=== PATIENT | female | born 1990 | race African-American/Black ===

== ENCOUNTER 2017-08-30 13:18 | Emergency (ER) | payer BC | END 2017-08-30 13:50 | disposition home or self-care (01) | LOC: ER 13:18 | DX: J01.90 Acute sinusitis, unspecified (principal); H92.01 Otalgia, right ear | CPT/HCPCS: 99283 ==

== ENCOUNTER 2018-09-22 01:20 | Emergency (ER) | payer BC, OTHER, SELFPAY ==
[~2018-09-22] VITALS: Ht 149.9 cm; Wt 80.3 kg
[~2018-09-22 01:20] MED LIST: AMOX1TAB61 PO; FLUT9.9S NS
[2018-09-22] MEDS ORDERED: IV NORMAL SALINE 1000ML BAG 1,000 ML IV SCH (02:00)
[2018-09-22 02:01] LABS: BILIRUBIN,URINE NEGATIVE (NEG); CLARITY,URINE CLEAR; COLOR,URINE YELLOW; NITRITE,URINE NEGATIVE (NEG); PROTEIN,URINE >=300 mg/dL (NEG-TRACE); UROBILINOGEN,URINE 0.2 mg/dL (0.2 mg/dL)
[2018-09-22 02:05] LABS: BACTERIA,URINE MODERATE /HPF (0-FEW); SQUAMOUS EPITHELIAL CELL,UR MANY /LPF
[2018-09-22 02:06] LABS: RBC,URINE 20-40 /HPF (0-2)
[2018-09-22] MEDS: MORPHINE SULFATE 4 MG/ML VIAL. IV/SQ PRN ×4 (02:11→04:52)
[2018-09-22 02:20] LABS: BASO # 0.1 x10^3/uL (0.0-0.2); BASO % 1 % (0-3); EOS # 0.2 x10^3/uL (0.0-0.7); EOS % 2 % (0-3); HEMATOCRIT 41.8 % (36.0-47.0); LYMPH # 3.1 x10^3/uL (1.0-4.8); LYMPH % 32 % (24-48); MEAN CORPUSCULAR HEMOGLOBIN 33 pg (25-35); MEAN CORPUSCULAR HGB CONC 34 g/dL (31-37); MEAN CORPUSCULAR VOLUME 98 fL (79-100); MONO # 0.5 x10^3/uL (0.0-1.1); MONO % 5 % (0-9); NEUT # 5.7 x10^3uL (1.8-7.7); NEUT % 61 % (31-73); PLATELET COUNT 352 x10^3/uL (140-400); RED BLOOD COUNT 4.26 x10^6/uL (3.50-5.40); RED CELL DISTRIBUTION WIDTH 14.2 % (11.5-14.5); WHITE BLOOD COUNT 9.5 x10^3/uL (4.0-11.0)
[2018-09-22 02:28] LABS: CALCIUM 8.8 mg/dL (8.5-10.1); CREATININE 0.7 mg/dL (0.6-1.0); GFR 118.9; POTASSIUM 3.9 mmol/L (3.5-5.1)
[2018-09-22] MEDS ORDERED: ONDANSETRON PF 4 MG/2 ML VIAL. IV ONE (02:30)
[2018-09-22 02:33] LABS: ALBUMIN 2.5 g/dL (3.4-5.0); ALBUMIN/GLOBULIN RATIO 0.6 (1.0-1.7); TOTAL BILIRUBIN 0.2 mg/dL (0.2-1.0); TOTAL PROTEIN 6.4 g/dL (6.4-8.2)
[2018-09-22] MEDS ORDERED: CONTRAST GIVEN. MC PRN (03:00)
[2018-09-22] MEDS ORDERED: IOHEXOL 300 MG/ML 100ML VIAL. IV ONE (03:30)
--- NOTE | 2018-09-22 03:35 | RAD ---
CT abdomen pelvis with contrast. HISTORY: Abdominal pain CT scan of the abdomen and pelvis was done using 75 mL Omnipaque 300 contrast. Lung bases are clear. There is no effusion. Liver is normal in appearance. Gallbladder is mildly distended without gallbladder wall thickening or a calcified gallstone. Spleen and adrenal glands are unremarkable. Pancreas is normal. There is no mass or hydronephrosis in the kidneys. There is no bowel obstruction or ascites. Appendix is normal. Uterus and ovaries are normal. There is no ascites. There is no adenopathy or bowel obstruction. IMPRESSION: 1. No abdominal or pelvic mass. 2. Mild gallbladder distention without gallbladder wall thickening. 3. No other acute finding noted. Electronically signed by: Raheel Carey MD (09/22/2018 3:31 AM) [facility]
[2018-09-22] MEDS ORDERED: DIPH1TAB PO (04:14)
[2018-09-22] MEDS ORDERED: TRAM50TA PO (04:14)
[2018-09-22] MEDS ORDERED: ONDA4TAB7 PO (04:14)
--- NOTE | 2018-09-22 04:16 | PHYS DOC ---
Past Medical History Past Medical History: Hypothyroid, Other Additional Past Medical Histor: nephrotic syndrome Past Surgical History: No Surgical History Alcohol Use: None Drug Use: Marijuana Adult General Chief Complaint Chief Complaint: NAUSEA/VOMITING/DIARRHA HPI HPI Patient is a 28-year-old female who presents with complaint of mid to upper abdominal pain that started earlier today. states that she has had similar episodes to this in the past. She states that since onset of pain she has had nausea with vomiting and diarrhea. She denies any fever. She rates her pain to be an 8 out of 10 and states the pain is worsened if she tries to eat or drink anything and with palpation of her abdomen. She denies any chest pain or shortness breath. She also denies any fever. Patient states that nothing improves her symptoms.[] Review of Systems Review of Systems Constitutional: Denies fever or chills [] Respiratory: Denies cough or shortness of breath [] Cardiovascular: No additional information not addressed in HPI [] GI: Complains of abdominal pain with nausea, vomiting and diarrhea [] : Denies dysuria or hematuria [] Neurologic: Denies headache, focal weakness or sensory changes [] All other systems were reviewed and found to be within normal limits, except as documented in this note. Current Medications Current Medications Current Medications Medications (Trade) Dose Ordered Sig/Donita Start Time Stop Time Status Last Admin Dose Admin Info (CONTRAST GIVEN -- Rx MONITORING) 1 each PRN DAILY PRN 09/22/18 03:00 09/24/18 02:59 Iohexol (Omnipaque 300 Mg/ml) 75 ml 1X ONCE 09/22/18 03:30 09/22/18 03:31 DC 09/22/18 03:08 75 ML Morphine Sulfate (Morphine Sulfate) 4 mg PRN Q15MIN PRN 09/22/18 02:00 09/23/18 01:59 09/22/18 03:31 4 MG Ondansetron HCl (Zofran) 4 mg 1X ONCE 09/22/18 02:30 09/22/18 02:31 DC 09/22/18 02:11 4 MG Sodium Chloride 1,000 ml @ 1,000 mls/hr Q1H 09/22/18 02:00 09/22/18 02:59 DC 09/22/18 02:24 1,000 MLS/HR Allergies Allergies Allergies Coded Allergies Type Severity Reaction Last Updated Verified No Known Drug Allergies 05/04/15 No Physical Exam Physical Exam Constitutional: Well developed, well nourished, no acute distress, non-toxic appearance. [] HENT: Normocephalic, atraumatic, bilateral external ears normal, oropharynx moist, no oral exudates, nose normal. [] Eyes: PERRLA, EOMI, conjunctiva normal, no discharge. [] Neck: Normal range of motion, no tenderness, supple, no stridor. [] Cardiovascular:Heart rate regular rhythm, no murmur [] Lungs & Thorax: Bilateral breath sounds clear to auscultation [] Abdomen: Bowel sounds normal, soft, with epigastric and right upper quadrant tenderness. [] Skin: Warm, dry, no erythema, no rash. [] Extremities: No tenderness, no cyanosis, no clubbing, ROM intact, no edema. [] Neurologic: Alert and oriented X 3, no focal deficits noted. [] Current Patient Data Vital Signs Vital Signs Date Time Temp Pulse Resp B/P (MAP) Pulse Ox O2 Delivery O2 Flow Rate FiO2 09/22/18 03:31 98 09/22/18 02:11 18 Room Air 09/22/18 01:45 98.9 98 150/107 (121) 98.9 Lab Values Laboratory Tests Test 09/22/18 01:35 09/22/18 01:41 09/22/18 02:15 Urine Color Yellow Urine Clarity Clear Urine pH 6.0 Urine Specific [place] 1.020 Urine Protein >=300 mg/dL (NEG-TRACE) Urine Glucose (UA) Negative mg/dL (NEG) Urine Ketones (Stick) Negative mg/dL (NEG) Urine Blood Large (NEG) Urine Nitrite Negative (NEG) Urine Bilirubin Negative (NEG) Urine Urobilinogen Dipstick 0.2 mg/dL (0.2 mg/dL) Urine Leukocyte Esterase Negative (NEG) Urine RBC 20-40 /HPF (0-2) Urine WBC 5-10 /HPF (0-4) Urine Squamous Epithelial Cells Many /LPF Urine Bacteria Moderate /HPF (0-FEW) Urine Mucus Mod /LPF POC Urine HCG, Qualitative Hcg negative (Negative) White Blood Count 9.5 x10^3/uL (4.0-11.0) Red Blood Count 4.26 x10^6/uL (3.50-5.40) Hemoglobin 14.0 g/dL (12.0-15.5) Hematocrit 41.8 % (36.0-47.0) Mean Corpuscular Volume 98 fL (79-100) Mean Corpuscular Hemoglobin 33 pg (25-35) Mean Corpuscular Hemoglobin Concent 34 g/dL (31-37) Red Cell Distribution Width 14.2 % (11.5-14.5) Platelet Count 352 x10^3/uL (140-400) Neutrophils (%) (Auto) 61 % (31-73) Lymphocytes (%) (Auto) 32 % (24-48) Monocytes (%) (Auto) 5 % (0-9) Eosinophils (%) (Auto) 2 % (0-3) Basophils (%) (Auto) 1 % (0-3) Neutrophils # (Auto) 5.7 x10^3uL (1.8-7.7) Lymphocytes # (Auto) 3.1 x10^3/uL (1.0-4.8) Monocytes # (Auto) 0.5 x10^3/uL (0.0-1.1) Eosinophils # (Auto) 0.2 x10^3/uL (0.0-0.7) Basophils # (Auto) 0.1 x10^3/uL (0.0-0.2) Sodium Level 144 mmol/L (136-145) Potassium Level 3.9 mmol/L (3.5-5.1) Chloride Level 107 mmol/L (98-107) Carbon Dioxide Level 24 mmol/L (21-32) Anion Gap 13 (6-14) Blood Urea Nitrogen 11 mg/dL (7-20) Creatinine 0.7 mg/dL (0.6-1.0) Estimated GFR (Cockcroft-Gault) 118.9 BUN/Creatinine Ratio 16 (6-20) Glucose Level 88 mg/dL (70-99) Calcium Level 8.8 mg/dL (8.5-10.1) Total Bilirubin 0.2 mg/dL (0.2-1.0) Aspartate Amino Transferase (AST) 32 U/L (15-37) Alanine Aminotransferase (ALT) 40 U/L (14-59) Alkaline Phosphatase 74 U/L (46-116) Total Protein 6.4 g/dL (6.4-8.2) Albumin 2.5 g/dL (3.4-5.0) L Albumin/Globulin Ratio 0.6 (1.0-1.7) L Lipase 265 U/L (73-393) Laboratory Tests 09/22/18 02:15 Laboratory Tests 09/22/18 02:15 EKG EKG [] Radiology/Procedures Radiology/Procedures [] Impressions: PROCEDURE: CT ABD PELV W/ IV CONTRST ONLY CT abdomen pelvis with contrast. HISTORY: Abdominal pain CT scan of the abdomen and pelvis was done using 75 mL Omnipaque 300 contrast. Lung bases are clear. There is no effusion. Liver is normal in appearance. Gallbladder is mildly distended without gallbladder wall thickening or a calcified gallstone. Spleen and adrenal glands are unremarkable. Pancreas is normal. There is no mass or hydronephrosis in the kidneys. There is no bowel obstruction or ascites. Appendix is normal. Uterus and ovaries are normal. There is no ascites. There is no adenopathy or bowel obstruction. IMPRESSION: 1. No abdominal or pelvic mass. 2. Mild gallbladder distention without gallbladder wall thickening. 3. No other acute finding noted. Electronically signed by: Raheel Carey MD (09/22/2018 3:31 AM) [facility] Course & Med Decision Making Course & Med Decision Making Pertinent Labs and Imaging studies reviewed. (See chart for details) [] Dragon Disclaimer Dragon Disclaimer This electronic medical record was generated, in whole or in part, using a voice recognition dictation system. Departure Departure Impression: Primary Impression: Abdominal pain Additional Impression: Gastroenteritis Disposition: 01 HOME, SELF-CARE Condition: STABLE Referrals: NO PCP (PCP) Patient Instructions: Abdominal Pain, Viral Gastroenteritis Scripts Tramadol Hcl (TRAMADOL HCL) 50 Mg Tablet 50 MG PO Q6HRS PRN for PAIN, #10 TAB Prov: ZORA SALAS Jr. DO 09/22/18 Diphenoxylate Hcl/Atropine (LOMOTIL TABLET) 1 Each Tablet 1 TAB PO TID PRN for DIARRHEA, #15 TAB Prov: ZORA SALAS Jr. DO 09/22/18 Ondansetron Hcl (ZOFRAN) 4 Mg Tablet 4 MG PO PRN TID PRN for NAUSEA, #15 nausea/vomiting Prov: ZORA SALAS Jr. DO 09/22/18 Problem Qualifiers Primary Impression: Abdominal pain Abdominal location: generalized Qualified Codes: R10.84 - Generalized abdominal pain ZORA SALAS Jr. DO September 22, 2018 04:15
[2018-09-22 04:51] VITALS: BP 116/61
== END 2018-09-22 05:02 | disposition home or self-care (01) ==
LOC: ER 01:20
DX: K52.9 Noninfective gastroenteritis and colitis, unspecified (principal); E03.9 Hypothyroidism, unspecified
CPT/HCPCS: 36415; 74177; 80053; 81001; 81025; 83690; 85025; 87086; 96361; 96374; 96375; 96376; 99285; J2270; J2405; J7030; Q9967

== ENCOUNTER 2018-11-02 20:21 | Emergency (ER) | payer OTHER ==
[~2018-11-02] VITALS: Ht 149.9 cm; Wt 80.3 kg
[~2018-11-02 20:21] MED LIST changes: +DIPH1TAB PO; +ONDA4TAB7 PO; +TRAM50TA PO
[2018-11-02 20:39] LABS: BILIRUBIN,URINE NEGATIVE (NEG); CLARITY,URINE CLEAR; COLOR,URINE YELLOW; NITRITE,URINE NEGATIVE (NEG); PH,URINE 5.5; PROTEIN,URINE >=300 mg/dL (NEG-TRACE); UROBILINOGEN,URINE 0.2 mg/dL (0.2 mg/dL)
[2018-11-02 20:47] LABS: BACTERIA,URINE FEW /HPF (0-FEW); SQUAMOUS EPITHELIAL CELL,UR MOD /LPF; WBC,URINE RARE /HPF (0-4)
[2018-11-02 20:56] LABS: BASO # 0.1 x10^3/uL (0.0-0.2); BASO % 0 % (0-3); EOS % 0 % (0-3); HEMATOCRIT 42.1 % (36.0-47.0); HEMOGLOBIN 14.3 g/dL (12.0-15.5); LYMPH # 2.4 x10^3/uL (1.0-4.8); LYMPH % 18 % (24-48); MEAN CORPUSCULAR HEMOGLOBIN 34 pg (25-35); MEAN CORPUSCULAR HGB CONC 34 g/dL (31-37); MEAN CORPUSCULAR VOLUME 99 fL (79-100); MONO # 0.5 x10^3/uL (0.0-1.1); MONO % 4 % (0-9); NEUT # 10.2 x10^3uL (1.8-7.7); NEUT % 77 % (31-73); PLATELET COUNT 355 x10^3/uL (140-400); RED BLOOD COUNT 4.26 x10^6/uL (3.50-5.40); RED CELL DISTRIBUTION WIDTH 14.1 % (11.5-14.5); WHITE BLOOD COUNT 13.3 x10^3/uL (4.0-11.0)
--- NOTE | 2018-11-02 20:56 | PHYS DOC ---
Past Medical History Past Medical History: Hypothyroid, Other Additional Past Medical Histor: nephrotic syndrome (ROSELINE ESCOBAR APRN) Past Surgical History: No Surgical History (ROSELINE ESCOBAR APRN) Alcohol Use: None Drug Use: Marijuana (ROSELINE ESCOBAR APRN) Adult General Chief Complaint Chief Complaint: ABDOMINAL PAIN HPI HPI Patient is a 28 year old female who presents with yesterday ate some sushi and has been having nausea and vomiting since last night. States she has a history of colitis. Patient states she is having cramping abdominal pain better e pigastric to mid lower. Patient states she is not having any diarrhea that are normal for her. Patient states she has not seen any blood in her vomit or stool. (ROSELINE ESCOBAR APRN) Review of Systems Review of Systems Constitutional: Denies fever or chills [] Eyes: Denies change in visual acuity, redness, or eye pain [] HENT: Denies nasal congestion or sore throat [] Respiratory: Denies cough or shortness of breath [] Cardiovascular: No additional information not addressed in HPI [] GI: mid epigastric and mid lower abdominal pain, nausea, vomiting, denies bloody stools or diarrhea [] : Denies dysuria or hematuria [] Musculoskeletal: Denies back pain or joint pain [] Integument: Denies rash or skin lesions [] Neurologic: Denies headache, focal weakness or sensory changes [] Endocrine: Denies polyuria or polydipsia [] All other systems were reviewed and found to be within normal limits, except as documented in this note. (ROSELINE ESCOBAR APRN) Current Medications Current Medications Current Medications Medications (Trade) Dose Ordered Sig/Donita Start Time Stop Time Status Last Admin Dose Admin Dicyclomine HCl (Bentyl) 10 mg 1X ONCE 11/02/18 22:00 11/02/18 22:01 DC 11/02/18 21:36 10 MG Fentanyl Citrate (Fentanyl 2ml Vial) 50 mcg 1X ONCE 11/02/18 22:00 11/02/18 22:01 DC 11/02/18 21:35 50 MCG Info (CONTRAST GIVEN -- Rx MONITORING) 1 each PRN DAILY PRN 11/02/18 21:15 11/02/18 22:40 DC Iohexol (Omnipaque 300 Mg/ml) 75 ml 1X ONCE 11/02/18 21:30 11/02/18 21:31 DC 11/02/18 21:19 75 ML Ondansetron HCl (Zofran) 4 mg 1X ONCE 11/02/18 21:00 11/02/18 21:01 DC 11/02/18 21:01 4 MG Sodium Chloride 1,000 ml @ 1,000 mls/hr 1X ONCE 11/02/18 21:00 11/02/18 21:59 DC 11/02/18 21:03 1,000 MLS/HR (KENNY MCDONNELL MD) Allergies Allergies Allergies Coded Allergies Type Severity Reaction Last Updated Verified No Known Drug Allergies 05/04/15 No (KENNY MCDONNELL MD) Physical Exam Physical Exam Constitutional: Well developed, well nourished, no acute distress, non-toxic appearance. [] HENT: Normocephalic, atraumatic, bilateral external ears normal, oropharynx moist, no oral exudates, nose normal. [] Eyes: PERRLA, EOMI, conjunctiva normal, no discharge. [] Neck: Normal range of motion, no tenderness, supple, no stridor. [] Cardiovascular:Heart rate regular rhythm, no murmur [] Lungs & Thorax: Bilateral breath sounds clear to auscultation [] Abdomen: Bowel sounds normal, soft, mid epigastric and mid lower tenderness, no masses, no pulsatile masses. [] Skin: Warm, dry, no erythema, no rash. [] Back: No tenderness, no CVA tenderness. [] Extremities: No tenderness, no cyanosis, no clubbing, ROM intact, no edema. [] Neurologic: Alert and oriented X 3, normal motor function, normal sensory function, no focal deficits noted. [] Psychologic: Affect normal, judgement normal, mood normal. [] (LUZ,ROSELINE Acosta APRN) Current Patient Data Vital Signs Vital Signs Date Time Temp Pulse Resp B/P (MAP) Pulse Ox O2 Delivery O2 Flow Rate FiO2 11/02/18 22:28 89 16 131/77 (95) 99 Room Air 11/02/18 20:41 98.8 98.8 (KENNY MCDONNELL MD) Lab Values Laboratory Tests Test 11/02/18 20:25 11/02/18 20:30 11/02/18 20:40 Urine Collection Type Unknown Urine Color Yellow Urine Clarity Clear Urine pH 5.5 Urine Specific [place] 1.025 Urine Protein >=300 mg/dL (NEG-TRACE) Urine Glucose (UA) Negative mg/dL (NEG) Urine Ketones (Stick) 40 mg/dL (NEG) Urine Blood Large (NEG) Urine Nitrite Negative (NEG) Urine Bilirubin Negative (NEG) Urine Urobilinogen Dipstick 0.2 mg/dL (0.2 mg/dL) Urine Leukocyte Esterase Negative (NEG) Urine RBC 6-10 /HPF (0-2) Urine WBC Rare /HPF (0-4) Urine Squamous Epithelial Cells Mod /LPF Urine Bacteria Few /HPF (0-FEW) Urine Mucus Marked /LPF POC Urine HCG, Qualitative Hcg negative (Negative) White Blood Count 13.3 x10^3/uL (4.0-11.0) H Red Blood Count 4.26 x10^6/uL (3.50-5.40) Hemoglobin 14.3 g/dL (12.0-15.5) Hematocrit 42.1 % (36.0-47.0) Mean Corpuscular Volume 99 fL (79-100) Mean Corpuscular Hemoglobin 34 pg (25-35) Mean Corpuscular Hemoglobin Concent 34 g/dL (31-37) Red Cell Distribution Width 14.1 % (11.5-14.5) Platelet Count 355 x10^3/uL (140-400) Neutrophils (%) (Auto) 77 % (31-73) H Lymphocytes (%) (Auto) 18 % (24-48) L Monocytes (%) (Auto) 4 % (0-9) Eosinophils (%) (Auto) 0 % (0-3) Basophils (%) (Auto) 0 % (0-3) Neutrophils # (Auto) 10.2 x10^3uL (1.8-7.7) H Lymphocytes # (Auto) 2.4 x10^3/uL (1.0-4.8) Monocytes # (Auto) 0.5 x10^3/uL (0.0-1.1) Eosinophils # (Auto) 0.0 x10^3/uL (0.0-0.7) Basophils # (Auto) 0.1 x10^3/uL (0.0-0.2) Sodium Level 140 mmol/L (136-145) Potassium Level 3.8 mmol/L (3.5-5.1) Chloride Level 102 mmol/L (98-107) Carbon Dioxide Level 26 mmol/L (21-32) Anion Gap 12 (6-14) Blood Urea Nitrogen 9 mg/dL (7-20) Creatinine 0.8 mg/dL (0.6-1.0) Estimated GFR (Cockcroft-Gault) 101.9 BUN/Creatinine Ratio 11 (6-20) Glucose Level 81 mg/dL (70-99) Calcium Level 9.0 mg/dL (8.5-10.1) Total Bilirubin 0.7 mg/dL (0.2-1.0) Aspartate Amino Transferase (AST) 19 U/L (15-37) Alanine Aminotransferase (ALT) 24 U/L (14-59) Alkaline Phosphatase 66 U/L (46-116) Total Protein 7.5 g/dL (6.4-8.2) Albumin 3.6 g/dL (3.4-5.0) Albumin/Globulin Ratio 0.9 (1.0-1.7) L Lipase 164 U/L (73-393) Laboratory Tests 11/02/18 20:40 Laboratory Tests 11/02/18 20:40 (KENNY MCDONNELL MD) EKG EKG [] (ROSELINE ESCOBAR APRN) Radiology/Procedures Radiology/Procedures [] (ROSELINE ESCOBAR APRN) Impressions: [facility] [address] [place], [place] [id number] IMAGING REPORT Signed PATIENT: KWABENA DONALDSON ACCOUNT: [id number] : 1990 LOCATION: ER AGE: 28 SEX: F EXAM STATUS: PRE ER ORD. PHYSICIAN: ROSELINE ESCOBAR APRN REASON: n/v abd pain, hx colitis; Omni 300, 75ml PROCEDURE: CT ABD PELV W/ IV CONTRST ONLY CT abdomen and pelvis with contrast: Reason for examination: Nausea and vomiting. Abdominal pain. History of colitis. Comparison is made to previous study dated 09/22/2018. Helical images were obtained through the abdomen and pelvis with intravenous administration of 75 cc Omnipaque 300. Reconstruction was performed in sagittal and coronal planes. Exposure: One or more of the following individualized dose reduction techniques were utilized for this examination: 1. Automated exposure control 2. Adjustment of the mA and/or kV according to patient size 3. Use of iterative reconstruction technique. The lung bases are clear. The heart size is normal with no pericardial effusion seen. No abnormality seen at the liver, gallbladder, spleen, adrenal glands or pancreas. The abdominal aorta and inferior vena cava show no acute abnormalities. No abnormality seen at the appendix. The colon shows a few scattered diverticuli but no evidence of diverticulitis or colitis. The small intestinal tract shows no abnormally dilated or thickened small bowel. No abnormality seen at the stomach. There is no evidence of small bowel obstruction. The kidneys show no renal masses, renal calculi, hydronephrosis or evidence of obstructive uropathy. No abnormality seen at the bladder, uterus or ovaries. No free fluid or free air seen in the abdomen or pelvis. No acute bony abnormalities are seen. IMPRESSION: Diverticuli in the sigmoid colon but no evidence of diverticulitis or colitis. No other focal abnormality seen in the abdomen or pelvis. Electronically signed by: Shobha Blair MD (11/02/2018 9:39 PM) [facility] DICTATED and SIGNED BY: SHOBHA BLAIR MD DATE: 11/02/182138 (ROSELINE ESCOBAR APRN) Course & Med Decision Making Course & Med Decision Making Patient is a 28 year old female who presents with yesterday ate some sushi and has been having nausea and vomiting since last night. States she has a history of colitis. Patient states she is having cramping abdominal pain better epigastric to mid lower. Patient states she is not having any diarrhea that are normal for her. Patient states she has not seen any blood in her vomit or stool. Patient denies fever, headache, dizziness, diarrhea, chest pain, shortness of air, numbness or tingling. She has no extremity swelling. Skin is pink warm and dry. Patient is rating her pain an 8 out of 10 and states is cramping. Abdomen is soft and tender with palpation to mid epigastric to mid lower abdomen. Patient states it just feels sore when I palpate her abdomen. Vital signs within normal limits. Bilateral lungs are clear to auscultation all lobes. Patient is ambulatory and walks with a steady gait. PERRLA. Heart rate regular without murmur. Speaks in full clear sentences. Mucus membranes are moist. 2119: Patient states that the fentanyl IV 50 mcg helped slightly but the pain is coming back and did not take her pain totally away. I have ordered another 50 mcg IV fentanyl and Bentyl IM that she states the pain is a cramping pain. Urine looks to be contaminated but will be sent off for culture. 2149: CT shows Diverticuli in the sigmoid colon but no evidence of dive rticulitis or colitis. No other focal abnormality seen in the abdomen or pelvis. Blood work unremarkable. Patient is discharged home and follow up with her primary care provider. (ROSELINE ESCOBAR APRN) Course & Med Decision Making Staff Physician Addendum: I was working in the ER during the course of this patient's visit. I was available for consultation as needed, but I was not directly involved in the care of this patient. (KENNY MCDONNELL MD) Dragon Disclaimer Dragon Disclaimer This electronic medical record was generated, in whole or in part, using a voice recognition dictation system. (ROSELINE ESCOBAR APRN) Departure Departure Impression: Primary Impression: Abdominal pain Additional Impression: Vomiting Disposition: 01 HOME, SELF-CARE Condition: STABLE Referrals: NO PCP (PCP) Patient Instructions: Abdominal Pain (Nonspecific), Nausea and Vomiting Additional Instructions: Follow-up with her primary care provider as soon as possible. Advance her diet slowly and as tolerated. Take medication as prescribed. Scripts Hydrocodone/Apap 5-325 (NORCO 5-325 TABLET) 1 Each Tablet 1 TAB PO PRN Q6HRS PRN for PAIN, #8 TAB 0 Refills Prov: ROSELINE ESCOBAR APRN 11/02/18 Ondansetron (ONDANSETRON ODT) 4 Mg Tab.rapdis 1 TAB PO PRN Q6-8HRS, #20 TAB Prov: ROSELINE ESCOBAR APRN 11/02/18 Problem Qualifiers Primary Impression: Abdominal pain Abdominal location: unspecified location Qualified Codes: R10.9 - Unspecified abdominal pain Additional Impression: Vomiting Vomiting type: unspecified Vomiting Intractability: non-intractable Nausea presence: with nausea Qualified Codes: R11.2 - Nausea with vomiting, unspecified ROSELINE ESCOBAR APRN Nov 02, 2018 20:56 KENNY MCDONNELL MD Nov 05, 2018 19:43
[2018-11-02] MEDS ORDERED: ONDANSETRON PF 4 MG/2 ML VIAL. IV ONE (21:00)
[2018-11-02] MEDS ORDERED: fentaNYL PF VIAL 100 MCG/2 ML VIAL IV ONE ×2 (21:00→22:00)
[2018-11-02] MEDS ORDERED: IV NORMAL SALINE 1000ML BAG 1,000 ML IV ONE ×2 (21:00)
[2018-11-02 21:07] LABS: CREATININE 0.8 mg/dL (0.6-1.0); GFR 101.9; POTASSIUM 3.8 mmol/L (3.5-5.1)
[2018-11-02 21:12] LABS: ALBUMIN 3.6 g/dL (3.4-5.0); ALBUMIN/GLOBULIN RATIO 0.9 (1.0-1.7); TOTAL BILIRUBIN 0.7 mg/dL (0.2-1.0); TOTAL PROTEIN 7.5 g/dL (6.4-8.2)
[2018-11-02] MEDS ORDERED: CONTRAST GIVEN. MC PRN (21:15)
[2018-11-02] MEDS ORDERED: IOHEXOL 300 MG/ML 100ML VIAL. IV ONE (21:30)
--- NOTE | 2018-11-02 21:42 | RAD ---
CT abdomen and pelvis with contrast: Reason for examination: Nausea and vomiting. Abdominal pain. History of colitis. Comparison is made to previous study dated 09/22/2018. Helical images were obtained through the abdomen and pelvis with intravenous administration of 75 cc Omnipaque 300. Reconstruction was performed in sagittal and coronal planes. Exposure: One or more of the following individualized dose reduction techniques were utilized for this examination: 1. Automated exposure control 2. Adjustment of the mA and/or kV according to patient size 3. Use of iterative reconstruction technique. The lung bases are clear. The heart size is normal with no pericardial effusion seen. No abnormality seen at the liver, gallbladder, spleen, adrenal glands or pancreas. The abdominal aorta and inferior vena cava show no acute abnormalities. No abnormality seen at the appendix. The colon shows a few scattered diverticuli but no evidence of diverticulitis or colitis. The small intestinal tract shows no abnormally dilated or thickened small bowel. No abnormality seen at the stomach. There is no evidence of small bowel obstruction. The kidneys show no renal masses, renal calculi, hydronephrosis or evidence of obstructive uropathy. No abnormality seen at the bladder, uterus or ovaries. No free fluid or free air seen in the abdomen or pelvis. No acute bony abnormalities are seen. IMPRESSION: Diverticuli in the sigmoid colon but no evidence of diverticulitis or colitis. No other focal abnormality seen in the abdomen or pelvis. Electronically signed by: Mikayla Cristobal MD (11/02/2018 9:39 PM) [facility]
[2018-11-02] MEDS ORDERED: DICYCLOMINE 20 MG/2 ML AMPUL. IM ONE (22:00)
[2018-11-02] MEDS ORDERED: ONDA4TAB12 PO (22:13)
[2018-11-02] MEDS ORDERED: HYDR-3164 PO (22:13)
[2018-11-02 22:28] VITALS: BP 131/77
== END 2018-11-02 22:30 | disposition home or self-care (01) ==
LOC: ER 20:21
DX: R10.13 Epigastric pain (principal); R10.30 Lower abdominal pain, unspecified; R11.2 Nausea with vomiting, unspecified; E03.9 Hypothyroidism, unspecified
CPT/HCPCS: 36415; 74177; 80053; 81001; 81025; 83690; 85025; 96361; 96372; 96374; 96375; 96376; 99285; J0500; J2405; J3010; J7030; Q9967